=== PATIENT | female | born 1930 | race African-American/Black ===

== ENCOUNTER 2018-09-07 17:53 | Inpatient (IN) | payer BC, OTHER ==
[~2018-09-07] VITALS: Ht 162.6 cm; Wt 52.3 kg
[~2018-09-07 17:53] MED LIST: ACET-2178 PO; ATOR10TA69 PO; ATOR40TA70 PO; CARV12.545 PO; CLOP75TA33 PO; FURO20TA4 PO; HYDR-4134 PO; LISI-604 PO; LISI10TA5 PO; LORA10TA7 PO; METO-396 PO; METO25TA6 PO; REPA1TAB5 PO; RISP0.5T19 PO; SITA50TA3 PO; SPIR25TA6 PO; ZOLP10TA6 PO
[2018-09-07] MEDS ORDERED: CLONIDINE 0.2MG TABLET PO ONE (18:45)
[2018-09-07 19:37] LABS: HEMATOCRIT. 35.3 % (36.0-48.0); HEMOGLOBIN. 11.6 g/dL (12.0-16.0); MEAN CORPUSCULAR VOLUME 85.5 fL (81.0-99.0); PLATELET 314 x1000/uL (130-400); RED BLOOD CELL COUNT 4.13 mill/uL (4.2-5.4); RED CELL DISTRIBUTION WIDTH 15.2 % (11.6-14.6)
[2018-09-07 19:43] LABS: CHLORIDE 111 mEq/L (98-107)
[2018-09-07 19:44] LABS: INR 1.1; PARTIAL THROMBOPLASTIN TIME 27.7 sec (23.4-31.0); PROTHROMBIN TIME 10.8 sec (9.1-11.1)
[2018-09-07 19:57] LABS: PLATELET ESTIMATE NORMAL
[2018-09-07] MEDS ORDERED: CLOPIDOGREL 75MG TABLET PO ONE (21:30)
[2018-09-07] MEDS ORDERED: HYDRALAZINE 20MG/ML VIAL IV ONE (23:30)
[2018-09-08] MEDS ORDERED: GUAIFENESIN 200MG/10ML SUGAR FREE UDC PO PRN (00:30)
[2018-09-08] MEDS ORDERED: ACETAMINOPHEN 325MG TABLET PO PRN (00:30)
[2018-09-08] MEDS ORDERED: DOCUSATE SODIUM 100MG CAPSULE PO PRN (00:30)
[2018-09-08] MEDS ORDERED: AMLODIPINE 10MG TABLET PO SCH (00:30)
[2018-09-08] MEDS ORDERED: ENOXAPARIN 40MG/0.4ML SYR SUBCUT SCH (00:30)
[2018-09-08] MEDS ORDERED: MORPHINE SULFATE 4 MG/ML CPJ (NOT FOR IM USE) IV PRN (00:30)
[2018-09-08] MEDS ORDERED: MAGNESIUM/ALUMINUM HYDROXIDE/SIMETHICONE 30ML UDC PO PRN (00:30)
[2018-09-08] MEDS ORDERED: HYDROCODONE/ACETAMINOPHEN 5/325MG TABLET PO PRN (00:30)
[2018-09-08] MEDS ORDERED: ONDANSETRON HCL 4MG/2ML INJ IV PRN (00:30)
[2018-09-08] MEDS: CLONIDINE 0.1MG TABLET PO PRN (06:27)
[2018-09-08 06:34] VITALS: BP 214/77
[2018-09-08 06:35] VITALS: BP 214/77
[2018-09-08 08:00] VITALS: BP 209/75
[2018-09-08] MEDS: ENOXAPARIN 30MG/0.3ML SYR SUBCUT SCH ×2 (09:00→10:06)
[2018-09-08] MEDS ORDERED: NA PHOS,M-B/NA PHOS,DI-BA ENEMA 118ML PR PRN (09:00)
[2018-09-08] MEDS: LISINOPRIL 20MG TABLET PO SCH (10:07)
[2018-09-08] MEDS: AMLODIPINE 10MG TABLET PO SCH (10:07)
[2018-09-08] MEDS: RISPERIDONE 0.5MG TABLET PO SCH ×2 (11:45→16:57)
[2018-09-08 12:00] VITALS: BP 175/70
[2018-09-08] MEDS: BLOOD SUGAR DIAGNOSTIC STRIP TEST SCH ×3 (13:07→21:22)
[2018-09-08] MEDS: INSULIN LISPRO 100 UNITS/ML SUBCUT SCH ×3 (13:08→21:00)
[2018-09-08] MEDS ORDERED: DEXTROSE 50% WATER 50ML SYRINGE IV PRN (13:15)
[2018-09-08] MEDS: HYDRALAZINE HCL 50MG TABLET PO SCH ×2 (13:58→21:22)
[2018-09-08 16:00] VITALS: BP 139/73
[2018-09-08 20:12] VITALS: BP 177/73
[2018-09-09] VITALS (7 sets, daily range): BP systolic 139–207; BP diastolic 52–90
[2018-09-09] MEDS: LORAZEPAM 2MG/ML CPJ IV PRN ×2 (00:30→08:29)
[2018-09-09] MEDS: CLONIDINE 0.1MG TABLET PO PRN (04:26)
[2018-09-09] MEDS: HYDRALAZINE HCL 50MG TABLET PO SCH ×2 (06:00→14:52)
[2018-09-09] MEDS: BLOOD SUGAR DIAGNOSTIC STRIP TEST SCH ×3 (06:40→17:40)
[2018-09-09] MEDS: INSULIN LISPRO 100 UNITS/ML SUBCUT SCH ×3 (07:50→17:40)
[2018-09-09] MEDS: AMLODIPINE 10MG TABLET PO SCH (09:00)
[2018-09-09] MEDS: RISPERIDONE 0.5MG TABLET PO SCH ×2 (09:00→17:00)
[2018-09-09] MEDS: ENOXAPARIN 30MG/0.3ML SYR SUBCUT SCH (09:00)
[2018-09-09] MEDS: LISINOPRIL 20MG TABLET PO SCH (09:00)
[2018-09-09] MEDS ORDERED: HALOPERIDOL LACTATE 5MG/ML VIAL IM SCH (09:45)
== END 2018-09-09 18:30 | disposition home or self-care (01) | DRG 206 ==
LOC: ER 17:53 → 6WST 23:31 → ENRESERV 09-08 04:56
PROVIDERS: ADMIT Hospitalist; ATTEND Hospitalist
DX: M94.0 Chondrocostal junction syndrome [Tietze] (principal); I16.0 Hypertensive urgency; E11.9 Type 2 diabetes mellitus without complications; E78.00 Pure hypercholesterolemia, unspecified; I10 Essential (primary) hypertension; F03.90 Unspecified dementia, unspecified severity, without behavioral disturbance, psychotic disturbance, mood disturbance, and anxiety; I25.10 Atherosclerotic heart disease of native coronary artery without angina pectoris; Z88.6 Allergy status to analgesic agent
CPT/HCPCS: 36415; 71045; 82962; 83880; 84484; 93005; 93306; 96374; 99285; J0360; J1630; J1650; J2060

== ENCOUNTER 2019-09-15 19:09 | Inpatient (IN) | payer BC, OTHER ==
[~2019-09-15] VITALS: Ht 154.9 cm; Wt 47.6 kg
[~2019-09-15 19:09] MED LIST changes: -ACET-2178 PO; +TOPUD PO
[2019-09-15] MEDS ORDERED: SODIUM CHLORIDE 0.9% 1,000 ML IV ONE (19:29)
[2019-09-15 19:42] LABS: BASOPHILS % 1.3 % (0.0-2.0); EOSINOPHILS % 0.9 % (0.0-5.0); HEMATOCRIT. 33.9 % (36.0-48.0); HEMOGLOBIN. 11.2 g/dL (12.0-16.0); LYMPHOCYTES % 21.5 % (20.0-50.0); MEAN CORPUSCULAR HEMOGLOBIN 27.9 pg (28.0-32.0); MEAN CORPUSCULAR VOLUME 83.9 fL (81.0-99.0); MEAN PLATELET VOLUME 8.1 fl (7.4-10.4); MONOCYTES % 13.9 % (2.0-8.0); NEUTROPHILS % 62.4 % (40.0-76.0); PLATELET 262 x1000/uL (130-400); RED BLOOD CELL COUNT 4.03 mill/uL (4.2-5.4); RED CELL DISTRIBUTION WIDTH 15.3 % (11.6-14.6)
[2019-09-15 19:46] LABS: CHLORIDE 108 mEq/L (98-107)
[2019-09-15 22:48] LABS: CLARITY URINE CLOUDY (CLEAR); COLOR URINE YELLOW (YELLOW); KETONES URINE NEGATIVE (NEGATIVE); LEUKOCYTE ESTERASE URINE 1+ (NEGATIVE); NITRITE URINE NEGATIVE (NEGATIVE); OCCULT BLOOD URINE TRACE (NEGATIVE); PH URINE 5.5 (4.5-8.0); PROTEIN URINE 2+ (NEGATIVE); SPECIFIC GRAVITY URINE 1.012 (1.005-1.030); UROBILINOGEN URINE 0.2 E.U./dL (0.2-1.0)
[2019-09-16] VITALS (14 sets, daily range): BP systolic 123–233; BP diastolic 56–102
[2019-09-16] MEDS ORDERED: ONDANSETRON HCL 4MG/2ML INJ IV PRN (08:45)
[2019-09-16] MEDS ORDERED: ACETAMINOPHEN 325MG TABLET PO PRN (08:45)
[2019-09-16] MEDS ORDERED: DEXTROSE 50% WATER 50ML SYRINGE IV PRN (08:45)
[2019-09-16] MEDS ORDERED: ENOXAPARIN 30MG/0.3ML SYR SUBCUT SCH (09:00)
[2019-09-16] MEDS ORDERED: CLOPIDOGREL 75MG TABLET PO SCH (09:00)
[2019-09-16] MEDS: AMLODIPINE 10MG TABLET PO SCH (09:09)
[2019-09-16] MEDS: CLONIDINE 0.1MG TABLET PO PRN ×2 (09:10→16:26)
[2019-09-16] MEDS: SODIUM CHLORIDE 0.45% 1,000 ML IV SCH (09:19)
[2019-09-16] MEDS ORDERED: ENOXAPARIN 60MG/0.6ML SYR SUBCUT NR (11:00)
[2019-09-16] MEDS: BLOOD SUGAR DIAGNOSTIC STRIP TEST SCH ×3 (11:50→20:16)
[2019-09-16] MEDS: INSULIN LISPRO 100 UNITS/ML SUBCUT SCH ×3 (13:29→20:16)
[2019-09-16] MEDS: HYDRALAZINE 20MG/ML VIAL IV PRN (20:14)
[2019-09-16 20:52] LABS: ETHANOL BLOOD < 10 mg/dL
[2019-09-16 20:55] LABS: LDL CHOLESTEROL 71 mg/dL (5-100)
[2019-09-16 20:57] LABS: HDL CHOLESTEROL 61 mg/dL (40-59)
[2019-09-16] MEDS ORDERED: ATORVASTATIN CALCIUM 40MG TABLET PO SCH (21:00)
[2019-09-16 21:10] LABS: FOLIC ACID (FOLATE) SERUM 14.4 ng/mL (>5.38)
[2019-09-17] VITALS (13 sets, daily range): BP systolic 152–204; BP diastolic 62–99
[2019-09-17] MEDS: CLONIDINE 0.1MG TABLET PO PRN ×2 (00:29→09:29)
[2019-09-17] MEDS: HYDRALAZINE 20MG/ML VIAL IV PRN ×2 (02:16→16:32)
[2019-09-17] MEDS: BLOOD SUGAR DIAGNOSTIC STRIP TEST SCH ×3 (05:48→17:35)
[2019-09-17] MEDS: SODIUM CHLORIDE 0.45% 1,000 ML IV SCH (05:49)
[2019-09-17 06:50] LABS: BASOPHILS % 1.2 % (0.0-2.0); EOSINOPHILS % 0.3 % (0.0-5.0); HEMOGLOBIN. 14.2 g/dL (12.0-16.0); LYMPHOCYTES % 15.5 % (20.0-50.0); MEAN CORPUSCULAR HEMOGLOBIN 27.7 pg (28.0-32.0); MEAN PLATELET VOLUME 8.3 fl (7.4-10.4); MONOCYTES % 12.1 % (2.0-8.0); NEUTROPHILS % 70.9 % (40.0-76.0); PLATELET 285 x1000/uL (130-400); RED BLOOD CELL COUNT 5.12 mill/uL (4.2-5.4); RED CELL DISTRIBUTION WIDTH 15.8 % (11.6-14.6)
[2019-09-17 07:11] LABS: INR 1.1; PROTHROMBIN TIME 11.4 sec (9.6-11.0)
[2019-09-17] MEDS: INSULIN LISPRO 100 UNITS/ML SUBCUT SCH ×3 (08:42→17:39)
[2019-09-17] MEDS ORDERED: CLOPIDOGREL 75MG TABLET PO SCH (09:00)
[2019-09-17] MEDS ORDERED: ENOXAPARIN 60MG/0.6ML SYR SUBCUT SCH (09:00)
[2019-09-17] MEDS: AMLODIPINE 10MG TABLET PO SCH (09:29)
[2019-09-17] MEDS ORDERED: RISPERIDONE 0.5MG TABLET PO SCH (10:00)
[2019-09-17] MEDS ORDERED: APIX5TAB MT (11:14)
[2019-09-17] MEDS ORDERED: HYDRALAZINE HCL 100MG TABLET PO SCH (21:00)
== END 2019-09-17 18:33 | disposition home health service (06) | DRG 682 ==
LOC: ER 19:09 → 3WST 22:37 → EDBEDREQ 22:42 → EDBEDREQTM 22:42 → ENRESERV 09-16 02:44 → 3WST 09-16 05:34
PROVIDERS: ADMIT Internal Medicine; ATTEND Internal Medicine
DX: N17.9 Acute kidney failure, unspecified (principal); G92 Toxic encephalopathy; G45.9 Transient cerebral ischemic attack, unspecified; I13.0 Hypertensive heart and chronic kidney disease with heart failure and stage 1 through stage 4 chronic kidney disease, or unspecified chronic kidney disease; E44.1 Mild protein-calorie malnutrition; Z68.1 Body mass index [BMI] 19.9 or less, adult; I48.91 Unspecified atrial fibrillation; N18.9 Chronic kidney disease, unspecified; E87.8 Other disorders of electrolyte and fluid balance, not elsewhere classified; E78.5 Hyperlipidemia, unspecified; I50.9 Heart failure, unspecified; I25.10 Atherosclerotic heart disease of native coronary artery without angina pectoris; E11.22 Type 2 diabetes mellitus with diabetic chronic kidney disease; E11.51 Type 2 diabetes mellitus with diabetic peripheral angiopathy without gangrene; F03.90 Unspecified dementia, unspecified severity, without behavioral disturbance, psychotic disturbance, mood disturbance, and anxiety; D64.9 Anemia, unspecified; E78.00 Pure hypercholesterolemia, unspecified; Z88.8 Allergy status to other drugs, medicaments and biological substances; Z86.73 Personal history of transient ischemic attack (TIA), and cerebral infarction without residual deficits; Z79.899 Other long term (current) drug therapy
CPT/HCPCS: 36415; 70551; 71045; 80048; 80053; 80061; 80320; 81003; 82140; 82607; 82746; 82962; 83036; 83605; 84439; 84443; 84481; 84484; 85025; 92523; 92610; 93005; 97162; 97166; 97530; 99291; J0360; J1650; J1815; J7030; G0480